=== PATIENT | male | born 1965 | race Native Hawaiian/Other Pacific Islander ===

== ENCOUNTER 2022-02-23 16:16 | Outpatient (CLI) | payer OTHER ==
[2022-02-23 16:52] LABS: POTASSIUM 4.1 mmol/L (3.6-5.2)
== END 2022-02-23 18:55 | disposition home or self-care (01) ==
LOC: CT 16:16
PROVIDERS: ATTEND Nurse Practitioner Primary Care
DX: R10.32 Left lower quadrant pain (principal)
CPT/HCPCS: 36415; 80053; Q9963

== ENCOUNTER 2022-04-10 11:10 | Outpatient (CLI) | payer OTHER | END 2022-04-10 21:18 | disposition home or self-care (01) | LOC: CT 11:10 | PROVIDERS: ATTEND Nurse Practitioner Primary Care | DX: R59.0 Localized enlarged lymph nodes (principal); N28.89 Other specified disorders of kidney and ureter ==

== ENCOUNTER 2022-06-03 15:36 | Outpatient (CLI) | payer OTHER | END 2022-06-03 19:39 | disposition home or self-care (01) | LOC: CT 15:36 | PROVIDERS: ATTEND Nurse Practitioner Family | DX: J32.9 Chronic sinusitis, unspecified (principal) ==

== ENCOUNTER 2022-10-07 15:33 | Outpatient (CLI) | payer OTHER | END 2022-10-07 19:00 | disposition home or self-care (01) | LOC: RAD 15:33 | PROVIDERS: ATTEND Family Medicine | DX: R20.0 Anesthesia of skin (principal) ==

== ENCOUNTER 2022-10-19 13:08 | Outpatient (CLI) | payer OTHER | END 2022-10-19 21:39 | disposition home or self-care (01) | LOC: CT 13:08 | PROVIDERS: ATTEND Internal Medicine Sleep Medicine | DX: R59.0 Localized enlarged lymph nodes (principal) ==

== ENCOUNTER 2023-04-15 15:55 | Outpatient (CLI) | payer BC ==
[2023-04-15 16:18] LABS: PLATELET COUNT 272 K/uL (142-355)
[2023-04-15 16:25] LABS: POTASSIUM 3.9 mmol/L (3.6-5.2)
== END 2023-04-15 21:57 | disposition home or self-care (01) ==
LOC: LABW 15:55
PROVIDERS: ATTEND Nurse Practitioner Family
DX: R42 Dizziness and giddiness (principal)
CPT/HCPCS: 36415; 80048; 82550; 82553; 84443; 84484; 85027; 93005